=== PATIENT | male | born 1980 | race Caucasian/White ===

== ENCOUNTER 2019-01-05 22:07 | Emergency (ER) | payer OTHER ==
[~2019-01-05] VITALS: Ht 175.3 cm; Wt 117.5 kg
[2019-01-05 22:13] VITALS: Ht 175.3 cm; Wt 117.5 kg
[2019-01-06 00:15] VITALS: BP 163/106
== END 2019-01-06 00:15 | disposition home or self-care (01) ==
LOC: ED 22:07
DX: S06.0X1A Concussion with loss of consciousness of 30 minutes or less, initial encounter (principal); I10 Essential (primary) hypertension; W18.30XA Fall on same level, unspecified, initial encounter; Y93.51 Activity, roller skating (inline) and skateboarding; Y92.331 Roller skating rink as the place of occurrence of the external cause; Y99.8 Other external cause status